=== PATIENT | female | born 1965 | race African-American/Black ===

== ENCOUNTER 2017-05-14 20:13 | Emergency (ER) | payer OTHER ==
[~2017-05-14] VITALS: Ht 167.6 cm; Wt 138.1 kg
[2017-05-14] MEDS ORDERED: CLEOCIN300 MG PO (21:23)
[2017-05-14] MEDS ORDERED: TYLENOL WITH C1 EACH PO (21:23)
[2017-05-14 21:52] VITALS: BP 144/80
== END 2017-05-14 21:53 | disposition home or self-care (01) ==
LOC: EME 20:13
PROC: 3E0T3BZ Introduction of Anesthetic Agent into Peripheral Nerves and Plexi, Percutaneous Approach (ICD-10-PCS; principal; 2017-05-14)
DX: K08.89 Other specified disorders of teeth and supporting structures (principal); I10 Essential (primary) hypertension; K02.9 Dental caries, unspecified; Z88.0 Allergy status to penicillin
CPT/HCPCS: 99281; 99284; J1885